=== PATIENT | female | born 1975 | race Caucasian/White ===

== ENCOUNTER → 2016-11-06 | Outpatient (REF) ==
[~2016-11-06] MED LIST: CLIMARA 0.1 PATCH.W1 TD; FE-2020 MG PO; IBU600 MG PO; MOTRIN 600600 MG/TAB PO; MULTI VITAMINS1 TAB PO; PERCOCET 325 MG1 TA2 PO; PRENATAL1 TA1 PO; SENOKOT S 50 MG1 TAB PO
== END ==
LOC: WSOH 17:15
DX: Z02.89 Encounter for other administrative examinations (principal)

== ENCOUNTER → 2018-02-17 | Outpatient (CLI) | payer OTHER | LOC: MC.RAD 14:53 | DX: Z12.31 Encounter for screening mammogram for malignant neoplasm of breast (principal); Z98.82 Breast implant status; Z90.13 Acquired absence of bilateral breasts and nipples ==

== ENCOUNTER → 2020-02-22 | Outpatient (REF) | LOC: WSOH 14:58 | DX: Z02.89 Encounter for other administrative examinations (principal) ==

== ENCOUNTER → 2020-03-08 | Outpatient (CLI) | payer OTHER | LOC: MC.RAD 13:40 | DX: Z12.31 Encounter for screening mammogram for malignant neoplasm of breast (principal); R53.81 Other malaise; G47.00 Insomnia, unspecified; R68.82 Decreased libido; E28.310 Symptomatic premature menopause; Z79.890 Hormone replacement therapy; Z80.3 Family history of malignant neoplasm of breast; Z90.13 Acquired absence of bilateral breasts and nipples; Z98.82 Breast implant status ==

== ENCOUNTER → 2023-04-28 | Outpatient (CLI) | payer OTHER | LOC: MC.RAD 10:36 | DX: Z12.31 Encounter for screening mammogram for malignant neoplasm of breast (principal) ==